=== PATIENT | female | born 1965 | race Two or more races ===

== ENCOUNTER 2022-04-26 09:06 | Day surgery (SDC) | payer OTHER | END 2022-04-26 14:05 | disposition home or self-care (01) | LOC: AMB-ENDOS 09:06 → CIR.AMB 13:30 → AMB-ENDOS 14:05 | PROVIDERS: ATTEND Colon & Rectal Surgery | DX: D12.0 Benign neoplasm of cecum (principal); K64.8 Other hemorrhoids; Z88.2 Allergy status to sulfonamides; Z20.822 Contact with and (suspected) exposure to COVID-19 ==